=== PATIENT | female | born 1955 | race Caucasian/White ===

== ENCOUNTER 2016-07-13 10:42 | Emergency (ER) | payer MEDICARE, OTHER ==
[~2016-07-13] VITALS: Ht 162.6 cm; Wt 86.4 kg
[2016-07-13 10:42] VITALS: TEMP 98.9
[2016-07-13] MEDS ORDERED: LIPITOR20 MG PO (11:21)
[2016-07-13] MEDS ORDERED: TAMOXIFEN CITRA20 MG PO (11:21)
[2016-07-13] MEDS ORDERED: ZANAFLEX CAPSULE2 MG PO (11:22)
[2016-07-13] MEDS ORDERED: KLONOPIN 0.5MG0.5 MG PO (11:22)
[2016-07-13] MEDS ORDERED: NORCO 325 MG-7.1 TAB PO (11:23)
[2016-07-13 12:35] LABS: BASO # 0.1 (0.0-0.2); BASO % 1.1 % (0.0-2.0); EOS # 0.1 (0.0-0.7); EOS % 1.1 % (0-4.0); GRAN # 4.1 (1.4-6.5); GRAN % 65.7 % (42.2-75.2); HEMATOCRIT 38.9 % (37.0-47.0); HEMOGLOBIN 12.9 g/dl (12.5-16.0); LYMPH # 1.7 (1.2-3.4); LYMPH % 26.4 % (20.0-51.0); MEAN CELL VOLUME 92 fl (80.0-100.0); MEAN CORPUSCULAR HEMOGLOBIN 31 pg (27.0-31.0); MEAN CORPUSCULAR HGB CONC 33 g/dl (33.0-37.0); MEAN PLATELET VOLUME 9.7 fl (7.4-10.4); MONO # 0.3 (0.1-0.6); MONO % 5.4 % (1.7-9.3); PLATELET COUNT 264 K/mm3 (130-400); RED BLOOD COUNT 4.21 M/mm3 (4.10-5.30); REDCELL DISTRIBUTION WIDTH-CV 12.8 % (11.5-14.5); WHITE BLOOD COUNT 6.3 K/mm3 (4.8-10.8)
[2016-07-13 12:42] LABS: CALCIUM 9.1 mg/dL (8.4-10.2); CREATININE, serum 0.56 mg/dL (0.52-1.25); POTASSIUM 3.7 mmol/L (3.4-5.0)
[2016-07-13 13:30] VITALS: BP 140/88; PULSE 96
== END 2016-07-13 14:15 | disposition home or self-care (01) ==
LOC: COL.ER 10:42
PROVIDERS: Nurse Practitioner
DX: M25.561 Pain in right knee (principal); M79.604 Pain in right leg; I10 Essential (primary) hypertension; W19.XXXA Unspecified fall, initial encounter
CPT/HCPCS: J1170; L1830